=== PATIENT | male | born 1970 | race Caucasian/White ===

== ENCOUNTER 2020-01-05 08:37 | Emergency (ER) | payer OTHER, SELFPAY ==
[2020-01-05] VITALS (12 sets, daily range): BP systolic 105–136; BP diastolic 60–92; PULSE 54–94; RESP 12–24; TEMP 36.6; O2SAT 97–100; BMI 25.6
--- NOTE | 2020-01-05 08:39 | DI.RAD.S_ITS ---
PROCEDURE: XR CHEST 1V INDICATIONS: chest pain TECHNIQUE: One view of the chest was acquired. COMPARISON: None. FINDINGS: Surgical changes and devices: None. Lungs and pleura: Lungs are clear. No pleural effusions or pneumothorax. Mediastinum: Mediastinal contours appear normal. Heart size is normal. Bones and chest wall: No suspicious bony lesions. Overlying soft tissues appear unremarkable. IMPRESSION: No acute cardiopulmonary disease. Dictated by: Tamika Guido M.D. on 01/05/2020 at 9:12 Approved by: Tamika Guido M.D. on 01/05/2020 at 9:17
--- NOTE | 2020-01-05 08:39 | ED.CHESTPAIN ---
HPI - Chest Pain General Chief Complaint: Chest Pain Stated Complaint: Chest pain Time Seen by Provider: 01/05/20 08:38 History of Present Illness HPI narrative: CC: Chest pain HPI: The patient is a 49-year-old male who states that at work at approximately 8:00 a.m. he developed tight severe heartburn in the center of his chest. It started out as a burning discomfort that was very uncomfortable and then became dull achy and tight discomfort. He denied that it radiated anywhere. It was a tight squeezing pain that was 10/10 in intensity. He denied any back pain neck pain jaw pain ear pain shoulder or arm pain with this. He did not feel dizzy or lightheaded. It just state in the center of his chest. Movement did not make it worse. He was unable to lie down and does not know if resting will would have helped. He had no significant shortness of breath. The pain was not worse with deep breathing or coughing. He has never had this discomfort before. He is a former smoker that quit February 2 years ago. He drinks alcohol and last drink was on Sunday night. He does not use any marijuana products. He denies being a diabetic having hypertension myocardial infarction or asthma. He states that the original severe pain lasted approximately 15-20 minutes and then it subsided an improved until it became approximately 1-2 but in the same location. The pain never went away completely. Related Data Home Medications Medication Instructions Recorded Confirmed No Known Home Medications 01/05/20 01/05/20 Allergies Allergy/AdvReac Type Severity Reaction Status Date / Time No Known Drug Allergies Allergy Verified 01/05/20 09:03 Review of Systems Review of Systems Narrative: REVIEW OF SYSTEMS: CONSTITUTIONAL: The patient denies any fall or injury fever chills or sweats as well as any significant change in his weight. NEUROLOGICAL: He has had no headache until we gave him nitroglycerin. He denies any numbness tingling paresthesias anesthesia is paresis or paralysis. EENT: He has had no sore throat difficulty in swallowing dysphasia. CARDIO-PULMONARY: He has had the chest pain as described but no shortness of breath cough palpitations or dizziness. GASTROINTESTINAL: He has had no significant abdominal pain nausea vomiting diarrhea change in bowel habits. GENITAL URINARY: He has had no urinary symptoms. MUSCULOSKELETAL/ RHEUMATOLOGICAL: He denies any significant back pain. DERMATOLOGICAL: He has had no rash or bruising. Exam Narrative Exam Narrative: PHYSICAL EXAM: CONSTITUTIONAL: Awake, Alert, Oriented, Coherent, Cooperative does not appear to be in any acute distress toxic or ill. HEAD: AT/NC EENT: PERRL, FROM of eyes, no discharge, no conjunctivitis. NOSE:No epistaxis or nasal drainage MOUTH:Oral mucosa is moist and pink, posterior pharynx is without erythema or exudate. NECK: Supple, no obvious JVD, Trachea is midline without stridor, no palpable LN. SPINE: Palpationof the cervical, Thoracic, Lumbar or Sacral spine reveals no gross deformity or tenderness. No CVA tenderness. THORAX: No deformity, retractions, chest wall tenderness. LUNGS: Clear, symmetrical breath sounds without respiratory distress. HEART: Normal heart tones, regular rhythm and rate without murmur. 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 He has no other abdominal pain or discomfort. There is no tenderness guarding rebound or rigidity noted. EXTREMITIES: No edema, deformity, tenderness or cyanosis. SKIN: No rash, bruising, petechiae or purpura. NEURO: Awake, alert, oriented, conversive, cranial nerves II-XII are symmetrical , moves all 4 extremities and is ambulatory. MENTAL HEALTH: Does not appear anxious or depressed. Initial Vital Signs Initial Vital Signs: Vital Signs Temperature 97.8 F 01/05/20 08:37 Pulse Rate 66 01/05/20 08:37 Respiratory Rate 12 01/05/20 08:37 Blood Pressure 136/92 H 01/05/20 08:37 Pulse Oximetry 99 01/05/20 08:37 Course Course Course Narrative: 1100 Troponin 0.101 patient administered 5000 unit bolus and started on heparin drip. [employer] Operator Dr. Mix called. 1145: The patient's repeat troponin 0.853. The patient will need to be transferred. We are calling the hospitalist at [facility] to transfer the patient for further evaluation and to be seen by the automobile mechanic radiator at [facility] 1210: I was trying to make arrangements for the patient be transferred to [facility] and the patient is a [facility] . 12:19 I discussed the patient with the [place] physician Dr. Mcduffie who recommended that we transfer the patient to [place]. Will call the emergency department at [facility] and arranged transfer to a [place] hospitalist. 1307: We are still waiting for occur the coordination with [place] to transfer the patient to be treated by the [place] hospitalist and Cardiology. 1325: Spoke with the [facility] transportation security screener and the automobile mechanic radiator Dr. Wolf who has accepted the patient being transferred to [facility] directly to the labor utilization superintendent. Orders Ordered: Discontinued Medications Heparin Sodium (Porcine) (Heparin) 5,000 unit IV NOW ONE Stop: 01/05/20 11:17 Last Admin: 01/05/20 11:29 Dose: 5,000 unit Documented by: CHE Heparin Sodium/Dextrose (Heparin Drip) 25,000 unit in 500 mls @ 20 mls/hr IV CONT [place]; Protocol Last Admin: 01/05/20 11:45 Dose: 1,000 units/hr, 20 mls/hr Documented by: CHE Morphine Sulfate (Morphine) 2 mg IV NOW ONE Stop: 01/05/20 11:23 Last Admin: 01/05/20 11:44 Dose: 2 mg Documented by: CHE Nitroglycerin (Nitrostat) 0.4 mg SL NOW ONE Stop: 01/05/20 08:40 Last Admin: 01/05/20 09:18 Dose: 0.4 mg Documented by: BARAK Nitroglycerin (Nitro-Bid) 0.5 inch TOP NOW ONE Stop: 01/05/20 11:20 Last Admin: 01/05/20 11:27 Dose: 0.5 inch Documented by: CHE Pantoprazole Sodium (Protonix) 40 mg IV NOW ONE Stop: 01/05/20 09:29 Last Admin: 01/05/20 10:12 Dose: 40 mg Documented by: BARAK Sucralfate (Carafate) 1 gm PO [facility] Sucralfate (Carafate) 1 gm PO NOW ONE Stop: 01/05/20 09:44 Last Admin: 01/05/20 10:12 Dose: 1 gm Documented by: BARAK Vital Signs Vital signs: Vital Signs - 8 hr 01/05/20 08:37 01/05/20 09:00 01/05/20 09:18 Temperature 97.8 F Pulse Rate 66 70 Respiratory Rate 12 16 Blood Pressure 136/92 H 127/79 Blood Pressure [Right Arm] 125/73 Pulse Oximetry 99 01/05/20 09:30 01/05/20 10:05 01/05/20 11:01 Temperature Pulse Rate 76 66 60 Respiratory Rate 24 21 12 Blood Pressure Blood Pressure [Right Arm] 113/61 110/60 107/60 Pulse Oximetry 98 98 100 01/05/20 11:27 01/05/20 12:03 01/05/20 13:07 Temperature Pulse Rate 61 73 57 L Respiratory Rate 19 22 Blood Pressure 121/73 Blood Pressure [Right Arm] 121/73 105/60 Pulse Oximetry 100 98 MDM - Chest Pain Medical Records Data Attestation: I reviewed the patient's medical records. Lab Data Attestation: I reviewed the patient's lab results. Result diagrams: 01/05/20 08:50 01/05/20 08:50 Labs: Lab Results 01/05/20 01/05/20 01/05/20 Range/Units 08:50 08:50 08:50 WBC 9.8 (4.5-11.0) X10^3/uL RBC 4.77 (4.5-5.9) X10^6/uL Hgb 15.4 (13.5-17.5) g/dL Hct 45.1 (41-53) % MCV 94.6 (80-100) fL MCH 32.3 (26-34) PG MCHC 34.1 (30-36) % RDW 13.8 (11.6-14.8) % Plt Count 403 H (150-400) X10^3/uL Neut % (Auto) 64.7 (50-75) % Lymph % (Auto) 22.9 L (25-40) % [place] % (Auto) 10.3 (3-14) % Eos % (Auto) 1.6 L (2-4) % Baso % (Auto) 0.5 (0-2) % Neut # (Auto) 6300 (9999-0555) /uL Lymph # (Auto) 2300 (7275-3481) /uL [place] # (Auto) 1000 H (0-900) /uL Eos # (Auto) 200 (0-450) /uL Baso # (Auto) 0 (0-100) /uL PT (10.1-12.7) SECONDS INR (0.9-1.3) APTT (26.4-36.2) SECONDS Sodium 138 (137-145) mmol/L Potassium 4.4 (3.4-5.1) mmol/L Chloride 106 (98-107) mmol/L Carbon Dioxide 26 (22-32) mmol/L BUN 18 (9-20) mg/dL Creatinine 0.87 (0.66-1.25) mg/dL Estimated GFR > 60.0 (>60) mL/min BUN/Creatinine Ratio 20.7 (6-22) Glucose 118 H (70-100) mg/dL Calcium 8.9 (8.4-10.2) mg/dL Magnesium 2.0 (1.6-2.3) mg/dL Total Bilirubin 0.5 (0.2-1.3) mg/dL AST 34 (17-59) IU/L ALT 33 (<50) IU/L Alkaline Phosphatase 75 (38-126) U/L Total Creatine Kinase 106 (55-170) U/L CK-MB (CK-2) 1.75 (<2.37) ng/mL CK-MB (CK-2) Rel Index 1.7 (1.5-5.0) % Troponin I 0.101 H (0.01-0.034) ng/mL Total Protein 7.4 (6.3-8.2) g/dL Albumin 4.2 (3.5-5.0) g/dL Globulin 3.2 (1.7-4.1) g/dL Albumin/Globulin Ratio 1.3 (1.0-2.8) Lipase 72 (23-300) U/L Ethyl Alcohol < 10 ( - 10) mg/dL COVID-19 PCR 01/05/20 01/05/20 01/05/20 Range/Units 08:50 11:07 11:45 WBC (4.5-11.0) X10^3/uL RBC (4.5-5.9) X10^6/uL Hgb (13.5-17.5) g/dL Hct (41-53) % MCV (80-100) fL MCH (26-34) PG MCHC (30-36) % RDW (11.6-14.8) % Plt Count (150-400) X10^3/uL Neut % (Auto) (50-75) % Lymph % (Auto) (25-40) % [place] % (Auto) (3-14) % Eos % (Auto) (2-4) % Baso % (Auto) (0-2) % Neut # (Auto) (6157-3102) /uL Lymph # (Auto) (7528-7446) /uL [place] # (Auto) (0-900) /uL Eos # (Auto) (0-450) /uL Baso # (Auto) (0-100) /uL PT 11.1 (10.1-12.7) SECONDS INR 1.0 (0.9-1.3) APTT 30 (26.4-36.2) SECONDS Sodium (137-145) mmol/L Potassium (3.4-5.1) mmol/L Chloride (98-107) mmol/L Carbon Dioxide (22-32) mmol/L BUN (9-20) mg/dL Creatinine (0.66-1.25) mg/dL Estimated GFR (>60) mL/min BUN/Creatinine Ratio (6-22) Glucose (70-100) mg/dL Calcium (8.4-10.2) mg/dL Magnesium (1.6-2.3) mg/dL Total Bilirubin (0.2-1.3) mg/dL AST (17-59) IU/L ALT (<50) IU/L Alkaline Phosphatase (38-126) U/L Total Creatine Kinase (55-170) U/L CK-MB (CK-2) (<2.37) ng/mL CK-MB (CK-2) Rel Index (1.5-5.0) % Troponin I 0.853 H* (0.01-0.034) ng/mL Total Protein (6.3-8.2) g/dL Albumin (3.5-5.0) g/dL Globulin (1.7-4.1) g/dL Albumin/Globulin Ratio (1.0-2.8) Lipase (23-300) U/L Ethyl Alcohol ( - 10) mg/dL COVID-19 PCR Cancelled 01/05/20 Range/Units 11:45 WBC (4.5-11.0) X10^3/uL RBC (4.5-5.9) X10^6/uL Hgb (13.5-17.5) g/dL Hct (41-53) % MCV (80-100) fL MCH (26-34) PG MCHC (30-36) % RDW (11.6-14.8) % Plt Count (150-400) X10^3/uL Neut % (Auto) (50-75) % Lymph % (Auto) (25-40) % [place] % (Auto) (3-14) % Eos % (Auto) (2-4) % Baso % (Auto) (0-2) % Neut # (Auto) (5777-3396) /uL Lymph # (Auto) (4709-5668) /uL [place] # (Auto) (0-900) /uL Eos # (Auto) (0-450) /uL Baso # (Auto) (0-100) /uL PT (10.1-12.7) SECONDS INR (0.9-1.3) APTT (26.4-36.2) SECONDS Sodium (137-145) mmol/L Potassium (3.4-5.1) mmol/L Chloride (98-107) mmol/L Carbon Dioxide (22-32) mmol/L BUN (9-20) mg/dL Creatinine (0.66-1.25) mg/dL Estimated GFR (>60) mL/min BUN/Creatinine Ratio (6-22) Glucose (70-100) mg/dL Calcium (8.4-10.2) mg/dL Magnesium (1.6-2.3) mg/dL Total Bilirubin (0.2-1.3) mg/dL AST (17-59) IU/L ALT (<50) IU/L Alkaline Phosphatase (38-126) U/L Total Creatine Kinase (55-170) U/L CK-MB (CK-2) (<2.37) ng/mL CK-MB (CK-2) Rel Index (1.5-5.0) % Troponin I (0.01-0.034) ng/mL Total Protein (6.3-8.2) g/dL Albumin (3.5-5.0) g/dL Globulin (1.7-4.1) g/dL Albumin/Globulin Ratio (1.0-2.8) Lipase (23-300) U/L Ethyl Alcohol ( - 10) mg/dL COVID-19 PCR Negative ECG Data Attestation: I personally reviewed and interpreted this ECG as follows: Interpretation: The patient's EKG obtained on January 04 at 08:4 1:31 a.m. reveals a normal sinus rhythm with a ventricular rate of 69. P.r.n. QRS intervals are normal. QTC is 407 milliseconds. The patient has a normal axis. The patient has T-wave inversions with a QS wave in V1. T-waves are upright in III. The patient has low voltage criteria in the limb leads. ST segments are nonspecific with no acute diagnostic ST or T-wave changes to suggest ischemia or infarct. The patient's ST segments appear questionably slightly elevated in leads III and AVF however this is because his IA interval is depressed. The isoelectric line prior to the P-wave associated with the ST segments are at the same level at takeoff. The patient's inferior ST segments pill will be watched for developing changes. 11:00 the patient's 2nd EKG obtained at 11:01 a.m.: Revealed low voltage criteria in the limb leads. The patient has a sinus bradycardia at 54. Intervals are normal. QRS duration is 82 milliseconds, QTC is 396 milliseconds. [place] is normal at 53. The patient's has no acute diagnostic ST segment changes. The patient has T-wave inversions in V1. With the patient's troponin elevated at 0.[address] segment changes on the EKG he is being treated as though he has a non-STEMI. He has been administered aspirin, started on heparin, a heparin drip, low-dose nitro paste, and morphine to control pain. A call has been placed to the automobile mechanic radiator Shreya Mix to discuss the patient and possible transfer to [facility] for further evaluation. Discharge Plan Departure Patient Disposition: [facility] Clinical Impression: Atypical chest pain, Non-ST elevation IN (NSTEMI), Elevated troponin Discharge Date/Time: 01/05/20 14:56 Prescriptions: No Action No Known Home Medications RF: 0
[2020-01-05 09:02] LABS: Add Manual Diff / Slide Review NO; Basophils Absolute Auto 0 /uL (0-100); Basophils Percent Auto 0.5 % (0-2); Eosinophils Absolute Auto 200 /uL (0-450); Eosinophils Percent Auto 1.6 % (2-4); Hematocrit 45.1 % (41-53); Hemoglobin 15.4 g/dL (13.5-17.5); Lymphocytes Absolute Auto 2300 /uL (1100-4500); Lymphocytes Percent Auto 22.9 % (25-40); Mean Corpuscular HGB Conc 34.1 % (30-36); Mean Corpuscular Hemoglobin 32.3 PG (26-34); Mean Corpuscular Volume 94.6 fL (80-100); Monocytes Absolute Auto 1000 /uL (0-900); Monocytes Percent Auto 10.3 % (3-14); Neutrophils Absolute Auto 6300 /uL (1500-7000); Neutrophils Percent Auto 64.7 % (50-75); Platelet Count 403 X10^3/uL (150-400); Red Blood Cell Count 4.77 X10^6/uL (4.5-5.9); Red Cell Distribution Width 13.8 % (11.6-14.8); White Blood Cell Count 9.8 X10^3/uL (4.5-11.0)
[2020-01-05 09:16] LABS: Alanine Aminotransferase 33 IU/L (<50); Albumin 4.2 g/dL (3.5-5.0); Albumin Globulin Ratio 1.3 (1.0-2.8); Alkaline Phosphatase 75 U/L (38-126); Aspartate Aminotransferase 34 IU/L (17-59); BUN Creatinine Ratio 20.7 (6-22); Bilirubin Total 0.5 mg/dL (0.2-1.3); Blood Urea Nitrogen 18 mg/dL (9-20); Calcium 8.9 mg/dL (8.4-10.2); Carbon Dioxide 26 mmol/L (22-32); Chloride 106 mmol/L (98-107); Creatine Kinase 106 U/L (55-170); Estimated Glomerular Filt Rate > 60.0 mL/min (>60); Ethanol (ETOH) < 10 mg/dL; Globulin 3.2 g/dL (1.7-4.1); Glucose 118 mg/dL (70-100); HEMOLYSIS 18 (0-50); Lipase 72 U/L (23-300); Potassium 4.4 mmol/L (3.4-5.1); Sodium 138 mmol/L (137-145); Total Protein 7.4 g/dL (6.3-8.2)
[2020-01-05] MEDS: NITROGLYCERIN 0.4 MG SL TAB SL (09:18)
[2020-01-05 09:26] LABS: Troponin I 0.101 ng/mL (0.01-0.034)
[2020-01-05 09:31] LABS: CKMB % Relative Index 1.7 % (1.5-5.0); Creatine Kinase MB 1.75 ng/mL (<2.37)
[2020-01-05] MEDS: SUCRALFATE 1 GM TABLET PO (10:12)
[2020-01-05] MEDS: PANTOPRAZOLE 40 MG VIAL IV (10:12)
--- NOTE | 2020-01-05 10:19 | PC.NURSE ---
Patient states that his head pain has resolved and his chest pain is minimal and getting better.
[2020-01-05] MEDS: NITROGLYCERIN OINT 1 INCH/GM OINT...G. 0.5 INCH TOP (11:27)
[2020-01-05] MEDS: HEPARIN 5,000 UNIT/ML VIAL 5000 UNIT IV (11:29)
[2020-01-05 11:41] LABS: Troponin I 0.853 ng/mL (0.01-0.034)
[2020-01-05] MEDS: MORPHINE 2 MG/ML INJ IV (11:44)
[2020-01-05] MEDS: HEPARIN DRIP 25,000 UNIT/500 ML IV.SOLN 20 UNIT IV (11:45)
[2020-01-05 13:19] LABS: Prothrombin Time 11.1 SECONDS (10.1-12.7)
[2020-01-05 13:22] LABS: PTT Partial Thromboplastin Tim 30 SECONDS (26.4-36.2)
--- NOTE | 2020-01-05 13:31 | PC.NURSE ---
[facility] Note: Spoke with [facility]PRO regarding [place] arranging xfer. Gave us the ok to call [facility]. [place] and arranged xfer. Laurie at [facility] Xfer center confirmed w/vika. Pt. accepted at [facility]. by . NWA ETA:[id number].
[2020-01-05 14:41] LABS: COVID19 -Nasal RAPID Negative (Negative)
--- NOTE | 2020-01-27 11:46 | PC.NURSE ---
late entry: Pt transferred to higher level of care @ 1453. Heparin gtt completed for purposes of IH documentation, continued w/ ALS transport.
== END 2020-01-05 14:56 | disposition short-term general hospital (02) ==
PROVIDERS: Emergency Provider Emergency Medicine
DX: I21.4 Non-ST elevation (NSTEMI) myocardial infarction (principal); R79.89 Other specified abnormal findings of blood chemistry; R07.89 Other chest pain
CPT/HCPCS: 36415; 71045; 80053; 80320; 82550; 82553; 83690; 83735; 84484; 85025; 85610; 85730; 87635; 93005; 96365; 96366; 96375; 99285; C9113; J1644; J2270